=== PATIENT | male | born 1955 | race Caucasian/White ===

== ENCOUNTER 2018-07-22 16:31 | Emergency (ER) | payer BC ==
[2018-07-22 17:27] VITALS: RESP 18; TEMP 97.7
[2018-07-22] MEDS ORDERED: LIDOCAINE VISCOUS 2% 15 ML CUP MUCOUS MEM ONE (19:17)
--- NOTE | 2018-07-22 20:27 | ED ---
Fall HPI - General Chief Complaint: Fall Stated Complaint: Laceration on Lip Time Seen by Provider: 07/22/18 19:17 Source: patient, RN notes reviewed, old records reviewed Mode of arrival: ambulatory - History of Present Illness Initial Comments: Patient is a 62-year-old male presents to return today for lower lip laceration. Patient reports that he was sleeping in his chair. He reports that he stood up. Quickly and when he stood up he started to pass out. When he did so he hit his lip on the TV stand. Patient states that he knew he stood up too quickly when this occurred. Patient reports that happen occasionally. He denies any chest pain shortness of breath. He was quickly aroused after he fell and hit his lip. He states he did not hit his head. He is not on any blood thinners. He denies any significant past medical history. Patient had extensive weight the emergency room and he is anxious to be discharged home when I am examining him. He states is here to have his lip sutured. - Related Data Home Medications Medication Instructions Recorded Confirmed [place]-3 Fatty Acids [[place]-3] 1,000 mg PO DAILY 07/22/18 07/22/18 Allergies Allergy/AdvReac Type Severity Reaction Status Date / Time No Known Allergies Allergy Verified 07/22/18 19:32 Review of Systems ROS Statement: Those systems with pertinent positive or pertinent negative responses have been documented in the HPI. ROS Other: All systems not noted in ROS Statement are negative. Past Medical History Past Medical History: No Reported History History of Any Multi-Drug Resistant Organisms: None Reported Past Surgical History: Orthopedic Surgery Additional Past Surgical History / Comment(s): KNEE Past Anesthesia/Blood Transfusion Reactions: No Reported Reaction Past Psychological History: No Psychological Hx Reported Smoking Status: Never smoker Past Alcohol Use History: None Reported Past Drug Use History: None Reported General Exam - General Exam Comments Initial Comments: This is a 62-year-old male. Alert and oriented 3. No distress. Limitations: no limitations General appearance: alert, in no apparent distress Head exam: Present: atraumatic, normocephalic, normal inspection Eye exam: Present: normal appearance, PERRL, EOMI. Absent: scleral icterus, conjunctival injection, periorbital swelling ENT exam: Present: normal exam, other (Patient has a 2 cm laceration over the left lower lip. No intraoral involvement. He has some bruising noted to the inner oral mucosa. Patient has no broken or fractured teeth.) Neck exam: Present: normal inspection. Absent: tenderness, meningismus, lymphadenopathy Respiratory exam: Present: normal lung sounds bilaterally. Absent: respiratory distress, wheezes, rales, rhonchi, stridor Cardiovascular Exam: Present: regular rate, normal rhythm, normal heart sounds. Absent: systolic murmur, diastolic murmur, rubs, gallop, clicks GI/Abdominal exam: Present: soft, normal bowel sounds. Absent: distended, tenderness, guarding, rebound, rigid Extremities exam: Present: normal inspection, full ROM, normal capillary refill. Absent: tenderness, pedal edema, joint swelling, calf tenderness Back exam: Present: normal inspection Neurological exam: Present: alert, oriented X3, CN II-XII intact Expanded Patient oriented to: Present: person, place, time Speech: Present: fluid speech Cranial nerves: EOM's Intact: Normal, Facial Sensation: Normal Cerebellar function: Finger to Nose: Normal Upper motor neuron: Pronator Drift: Normal Sensory exam: Upper Extremity Light Touch: Normal, Lower Extremity Light Touch: Normal Motor strength exam: RUE: 5, LUE: 5, RLE: 5, LLE: 5 Eye Response: (4) open spontaneously Motor Response: (6) obeys commands Verbal Response: (5) oriented Ivy Total: 15 Psychiatric exam: Present: normal affect, normal mood Skin exam: Present: warm, dry, intact, normal color. Absent: rash Course Vital Signs 07/22/18 17:24 Temperature 97.7 F Pulse Rate 72 Respiratory 18 Rate Blood Pressure 128/84 O2 Sat by Pulse 100 Oximetry Medical Decision Making - Medical Decision Making Is a 62-year-old male presents emergency department today after a syncopal episode from standing up too quickly. Patient at time fell causing a lower lip laceration. He quickly was aroused. Patient has a 62 cm laceration over the left lower lip. This wound was irrigated and closed with 3 sutures. EKG was completed on the Patient was sized break cardio otherwise normal EKG. Patient appears clinically well. He denies any chest pain shortness breath. He has no headache. Cardiac exam was benign. No murmurs gallops or rubs. Lungs are clear to auscultation. Patient is neurologically intact. Patient is refusing any further workup due to his extensive ER week time. I did discuss with him complete the suture is intact and EKG. Patient is agreeable to this plan. Patient's family has been advised on close follow-up with primary care physician for reevaluation. Discussed suture care and monitoring for any infection. Discussed Patient may need further workup for vasovagal episode. I discussed that they should return to emergency department promptly T is any episodes of chest pain signs of altered mental status or any other complaints. Patient agrees to treatment plan will comply. Return parameters were discussed. 07/22/18 20:32 EKG performed at 1937 shows sinus bradycardia, otherwise normal EKG. Ventricular rate 57 bpm. : 58 ms. QRS duration is 108 ms. QT QTc is 410/399 ms. No atrial ventricular arrhythmias. No ST changes. Disposition Clinical Impression: Lip laceration, Vaso vagal episode Disposition: HOME SELF-CARE Condition: Good Instructions: Syncope (ED), Facial Laceration (ED) Additional Instructions: Please return to the emergency room in 7 days to have sutures removed. Please leave wound covered for the first 24-48 hours and then leave open to air after that time. Please use clean soap and water to clean the suture area to prevent scabbing over the top of your sutures. Please watch for any signs of infection which may include but not limited to increased pain, swelling, redness, fever or chills. Please return to the emergency room if any signs of infection do occur. Please return to the emergency room for any other concerns or complications. Is patient prescribed a controlled substance at d/c from ED?: No Referrals: George Mcdonald MD [Primary Care Provider] - 1-2 days Time of Disposition: 20:26
[2018-07-22 20:54] VITALS: BP 133/82; PULSE 61
== END 2018-07-22 20:53 | disposition home or self-care (01) ==
LOC: EC 16:31
DX: S01.511A Laceration without foreign body of lip, initial encounter (principal); R55 Syncope and collapse; R00.1 Bradycardia, unspecified; Z53.29 Procedure and treatment not carried out because of patient's decision for other reasons; W18.00XA Striking against unspecified object with subsequent fall, initial encounter
CPT/HCPCS: 12011; 93005; 99284

== ENCOUNTER 2021-02-14 07:37 | Day surgery (SDC) | payer BC ==
[2021-02-12 15:40] VITALS: BMI 24.6
[~2021-02-14 07:37] MED LIST: LACTATED RINGERS 1,000 ML IV SCH; LIDOCAINE 1% (10MG/ML) FOR IV START INTRADERMA PRN
[2021-02-14 08:30] VITALS: RESP 16
[2021-02-14] MEDS ORDERED: PROPOFOL 10 MG/ML 20 ML VIAL IV ONE (08:56)
[2021-02-14] MEDS ORDERED: LIDOCAINE 1% INJ 10MG/ML (20 ML MDV) ONE (08:56)
[2021-02-14] MEDS ORDERED: LACTATED RINGERS 1,000 ML IV ONE (09:11)
[2021-02-14] MEDS ORDERED: IV FLUID CONTINUATION 500 ML IV ONE (09:11)
--- NOTE | 2021-02-14 09:11 | P.PCN ---
Date of Procedure: 02/14/21 Procedure(s) Performed: BRIEF HISTORY: Patient is a 65-year-old pleasant white male scheduled for an elective colonoscopy as a part of screening for colon rectal neoplasia and family history of colon cancer. His father was diagnosed with colon cancer at age 69. PROCEDURE PERFORMED: Colonoscopy with biopsy. PREOPERATIVE DIAGNOSIS: Screening for colon cancer and family history of colon cancer. IV sedation per Anesthesia. PROCEDURE: After informed consent was obtained, the patient, was brought into the endoscopy unit. IV sedation was administered by Anesthesia under continuous monitoring. Digital rectal examination was normal. Initially the Olympus CF-160 flexible video colonoscope was then inserted in the rectum, gradually advanced into the cecum without any difficulty. Careful examination was performed as the scope was gradually being withdrawn. Ileocecal valve and the appendiceal orifice were visualized and appeared normal. Prep was excellent. Mucosa of the cecum, ascending colon, appeared normal. In the transverse colon there was a 3-4 mm sessile polyp removed by cold biopsy. In the sigmoid colon there was another 5 mm sessile polyp removed by cold biopsy. Rest of the transverse colon, descending colon, sigmoid colon, and rectum appeared normal. Scattered sigmoid diverticulosis seen. Retroflexion was performed in the rectum and no lesions were seen. The patient tolerated the procedure well. IMPRESSION: 3-4 mm sessile transverse colon polyp status post biopsy 5 mm sessile sigmoid colon polyp status post biopsy Scattered sigmoid diverticulosis RECOMMENDATIONS: Findings of this examination were discussed with the patient as well as his family. He was advised to follow with the biopsy results and have a repeat colonoscopy in 5 years because of the family history of colon cancer
[2021-02-14 09:28] VITALS: BP 117/75; PULSE 66
== END 2021-02-14 09:43 | disposition home or self-care (01) ==
LOC: ORWHC2ENDO 07:37
PROVIDERS: ATTEND Internal Medicine Gastroenterology
DX: Z12.11 Encounter for screening for malignant neoplasm of colon (principal); D12.3 Benign neoplasm of transverse colon; D12.5 Benign neoplasm of sigmoid colon; K57.30 Diverticulosis of large intestine without perforation or abscess without bleeding; Z80.0 Family history of malignant neoplasm of digestive organs; Z91.013 Allergy to seafood; Z98.890 Other specified postprocedural states
CPT/HCPCS: 88305; 45380; J2001; J2704